=== PATIENT | male | born 1945 | race Caucasian/White ===

== ENCOUNTER 2023-06-30 13:35 | Emergency (ER) | payer OTHER, MEDICAID ==
[~2023-06-30] VITALS: Ht 165.1 cm; Wt 83.9 kg
[2023-06-30 13:43] VITALS: BP 136/84; PULSE 65; RESP 20; TEMP 98; O2SAT 98
[2023-06-30] MEDS: TRANEXAMIC ACID 1,000 MG/10 ML VIAL MC ONE (15:02)
[2023-06-30 15:06] VITALS: O2SAT 99
[2023-06-30 16:14] VITALS: BP 162/60; PULSE 72; RESP 0; TEMP 98.1
== END 2023-06-30 16:14 | disposition home or self-care (01) ==
LOC: MED 13:35
DX: T82.838A Hemorrhage due to vascular prosthetic devices, implants and grafts, initial encounter (principal); E11.22 Type 2 diabetes mellitus with diabetic chronic kidney disease; I12.0 Hypertensive chronic kidney disease with stage 5 chronic kidney disease or end stage renal disease; N18.6 End stage renal disease; Z99.2 Dependence on renal dialysis; E78.5 Hyperlipidemia, unspecified; Z86.73 Personal history of transient ischemic attack (TIA), and cerebral infarction without residual deficits; Z95.1 Presence of aortocoronary bypass graft; Y83.1 Surgical operation with implant of artificial internal device as the cause of abnormal reaction of the patient, or of later complication, without mention of misadventure at the time of the procedure
CPT/HCPCS: 99291; J3490